=== PATIENT | male | born 1960 | race Caucasian/White ===

== ENCOUNTER → 2025-01-23 | Outpatient (CLI) | payer OTHER | LOC: M RAD 15:52 | PROVIDERS: ATTEND Student in an Organized Health Care Education/Training Program | DX: R06.02 Shortness of breath (principal); M54.9 Dorsalgia, unspecified ==

== ENCOUNTER → 2025-02-16 | Outpatient (CLI) | payer OTHER | LOC: M RAD 06:41 | PROVIDERS: ATTEND Student in an Organized Health Care Education/Training Program | DX: M46.06 Spinal enthesopathy, lumbar region (principal); M51.24 Other intervertebral disc displacement, thoracic region; M51.26 Other intervertebral disc displacement, lumbar region; M47.816 Spondylosis without myelopathy or radiculopathy, lumbar region; M43.17 Spondylolisthesis, lumbosacral region; M48.061 Spinal stenosis, lumbar region without neurogenic claudication ==

== ENCOUNTER → 2025-05-12 | Outpatient (CLI) | payer OTHER ==
[~2025-05-12] MED LIST: PROHANCE 279.3MG/ML 15ML VIAL As Ordered ONE
== END ==
LOC: M RAD 09:14
PROVIDERS: ATTEND Physician Assistant
DX: R19.00 Intra-abdominal and pelvic swelling, mass and lump, unspecified site (principal); M48.061 Spinal stenosis, lumbar region without neurogenic claudication; K44.9 Diaphragmatic hernia without obstruction or gangrene
CPT/HCPCS: 74183; A9579